=== PATIENT | male | born 2000 | race Two or more races ===

== ENCOUNTER 2021-12-15 09:29 | Emergency (ER) | payer MEDICAID, OTHER ==
[~2021-12-15] VITALS: Ht 172.7 cm; Wt 93.0 kg
[2021-12-15 09:58] VITALS: BP 157/95
[2021-12-15] MEDS ORDERED: cefTRIAXone SOD 1,000 MG VL IM ONE (11:00)
[2021-12-15] MEDS ORDERED: PROM1SOL4 PO (11:30)
[2021-12-15] MEDS ORDERED: AZIT500T66 PO (11:30)
== END 2021-12-15 11:36 | disposition home or self-care (01) ==
LOC: ER 09:29
DX: J03.90 Acute tonsillitis, unspecified (principal); J20.9 Acute bronchitis, unspecified
CPT/HCPCS: 71045; 96372; 99283; J0696

== ENCOUNTER 2024-12-07 17:10 | Emergency (ER) | payer MEDICAID, OTHER ==
[~2024-12-07] VITALS: Ht 175.3 cm; Wt 93.9 kg
[~2024-12-07 17:10] MED LIST: AZIT500T66 PO; PROM1SOL4 PO
[2024-12-07 17:25] VITALS: BP 150/77; PULSE 112; RESP 16; TEMP 98.6; O2SAT 97
[2024-12-07] MEDS ORDERED: ACET500T58 PO (18:17)
[2024-12-07] MEDS ORDERED: AMOX875T4 PO (18:17)
--- NOTE | 2024-12-07 18:17 | ED.PDOC ---
History of Present Illness(SKN HPI Comments 24-year-old male presents to ER with complaints of dog bite x one day. 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 States he is unsure if the dog is up-to-date on shots and is unsure when his last tetanus shot was. He reports 8/10 pain localized to dog bite on right lower leg. Reports that he cleaned the area with alcohol prior to arrival to ER. Patient presents to ER ambulatory on arrival, with steady gait, in no distress. Denies numbness/tingling, foreign body sensation or any further symptoms/complaints Chief Complaint: Animal Bite Time Seen by MD: 18:05 Primary Care Provider: UNKNOWN History of Present Illness: Nurses Notes, Medications, Allergies Allergies: Coded Allergies: NO KNOWN ALLERGIES (Unverified , 12/15/21) Home Meds Active Scripts Amoxicillin & Pot Clavulanate (Amoxicillin/Potassium Cla) 875 Mg Tab, 1 TAB PO BID for 7 Days, #14 TAB 0 Refills Prov:LUDWIG SERRANO 12/07/24 Acetaminophen (Acetaminophen) 500 Mg Tab, 500 MG PO Q4HPRN, #30 TAB 0 Refills Prov:LUDWIG SERRANO 12/07/24 Promethazine-Dm (Promethazine Dm 6.25-15 mg/5Ml) 1 Monica Monica, 5 ML PO TID, #150 ML Prov:RADHA DUNNE 12/15/21 Azithromycin (Azithromycin) 500 Mg Tab, 500 MG PO DAILY, #5 TAB Prov:RADHA DUNNE 12/15/21 Information Source: Patient Mode of Arrival: Ambulatory Immunization Status of Animal: Unknown Past Medical History PAST MEDICAL HISTORY: Denies Surgical History: Denies all surgeries Family History Family History: Unknown Social History Smoker: Non-Smoker Alcohol: Denies ETOH Use Drugs: Denies Drug Use Lives In: Home Constitutional: denies: chills, diaphoresis, fatigue, fever, malaise, sweats, weakness, others EENTM: denies: blurred vision, double vision, ear bleeding, ear discharge, ear drainage, ear pain, ear ringing, eye pain, eye redness, hearing loss, mouth pain, mouth swelling, nasal discharge, nose bleeding, nose congestion, nose pain, photophobia, tearing, throat pain, throat swelling, voice changes, others Respiratory: denies: cough, hemoptysis, orthopnea, SOB at rest, shortness of breath, SOB with excertion, stridor, wheezing, others Cardiovascular: denies: chest pain, dizzy spells, diaphoresis, Dyspnea on exertion, edema, irregular heart beat, left arm pain, lightheadedness, palpitations, PND, syncope, others Gastrointestinal: denies: abdomen distended, abdominal pain, blood streaked bowels, constipated, diarrhea, dysphagia, difficulty swallowing, hematemesis, melena, nausea, poor appetite, poor fluid intake, rectal bleeding, rectal pain, vomiting, others Genitourinary: denies: burning, dysuria, flank pain, frequency, hematuria, incontinence, penile discharge, penile sore, pain, testicle pain, testicle swelling, urgency, others Neurological: denies: dizziness, fainting, headache, left sided numbness, left sided weakness, numbness, paresthesia, pre-existing deficit, right sided numbness, right sided weakness, seizure, speech problems, tingling, tremors, weakness, others Musculoskeletal: denies: back pain, gout, joint pain, joint swelling, muscle pain, muscle stiffness, neck pain, others Integumetry: reports: others ( STATED IN HPI) Allergic/Immunocompromised: denies: Difficulty Healing, Frequent Infections, Hives, Itching, others Hematologic/Lymphatic: denies: anemia, blood clots, easy bleeding, easy bruising, swollen glands, others Endocrine: denies: excessive hunger, excessive sweating, excessive thirst, excessive urination, flushing, intolerance to cold, intolerance to heat, unexplained weight gain, unexplained weight loss, others Psychiatric: denies: anxiety, bipolar disorder, depression, hopeless, panic disorder, schizophrenia, sleepless, suicidal, others Physical Exam General Appearance: No Apparent Distress, Obese HEENT: PERRL/EOMI Neck: Full Range of Motion, Non-Tender, Normal Respiratory: Chest Non-Tender, Lungs Clear, No Accessory Muscle Use, No Respiratory Distress, Normal Breath Sounds Cardiovascular: No Murmur, No Gallop, Regular Rate/Rhythm Breast Exam: Deferred Gastrointestinal: NOT DONE Genitalia: Deferred Pelvic: Deferred Rectal: Deferred Extremities: Normal capillary refill, Normal range of motion Neurologic: Alert, data management consultant II-XII nml as Tested, No Motor Deficits, Normal Affect, Normal Mood, No Sensory Deficits Cerebellar Function: Normal Reflexes: Normal Skin: Dry, Warm Lymphatic: No Adenopathy Was a procedure done? Was a procedure done?: No Sedation Sedation?: No Images 1 - Small abrasions noted to right lower leg <2 cm in size. No bleeding/foreign body/further skin changes noted. Gait intact without abnormality Differential Diagnosis (INTG) Differential Diagnosis: Laceration, Open Fracture, Retained Foreign Body X-Ray, Labs, Meds, VS Vital Signs Date Time Temp Pulse Resp B/P (MAP) Pulse Ox O2 Delivery O2 Flow Rate FiO2 12/07/24 17:25 98.6 112 16 150/77 (101) 97 98.6 Tdap 0.5 mL IM ordered Wound care/cleaning discussed and advised Workman's comp paperwork filled out Advised to follow up with PCP and workman's comp PCP in 1-2 days Patient verbalized understanding and agreeable with current plan of care Advised to return to ER immediately if symptoms worsen Time of 1ST Reevaluation: 17:54 Reevaluation 1ST: N/A Patient Education/Counseling: Diagnosis, Treatment, Prognosis, Need For Follow Up Family Education/Counseling: No Family Present Departure 1 Departure Time of Disposition: 18:12 Impression: Primary Impression: Dog bite of right lower leg Qualified Codes: S81.851A - Open bite, right lower leg, initial encounter; W54.0XXA - Bitten by dog, initial encounter Disposition: HOME / SELF CARE / HOMELESS Condition: Stable e-Prescriptions Amoxicillin & Pot Clavulanate (Amoxicillin/Potassium Cla) 875 Mg Tab 1 TAB PO BID for 7 Days, #14 TAB 0 Refills Prov: LUDWIG SERRANO 12/07/24 Acetaminophen (Acetaminophen) 500 Mg Tab 500 MG PO Q4HPRN, #30 TAB 0 Refills Prov: LUDWIG SERRANO 12/07/24 Discharged With: Self Critical Care Note Critical Care Time?: No Stability Stability form required: No Heart Score Heart Score: Heart Score Response (Comments) Value History N/A 0 EKG N/A 0 Age N/A 0 Risk Factors N/A 0 Troponin N/A 0 Total 0 LUDWIG SERRANO Dec 07, 2024 18:17
[2024-12-07] MEDS: TETANUS-DIPTH-ACEL PERTUSSIS 0.5ML SYR Tdap IM ONE (18:25)
== END 2024-12-07 18:39 | disposition home or self-care (01) ==
LOC: ER 17:10
DX: S81.851A Open bite, right lower leg, initial encounter (principal); Z79.899 Other long term (current) drug therapy; W54.0XXA Bitten by dog, initial encounter; X58.XXXA Exposure to other specified factors, initial encounter; Y93.89 Activity, other specified; Y92.89 Other specified places as the place of occurrence of the external cause; Y99.8 Other external cause status
CPT/HCPCS: 90471; 90715